=== PATIENT | female | born 1955 | race Caucasian/White ===

== ENCOUNTER 2016-12-20 09:23 | Emergency (ER) | payer OTHER ==
[~2016-12-20] VITALS: Ht 160 cm; Wt 62.4 kg
[~2016-12-20 09:23] MED LIST: ASPIR-LOW81 MG PO; ATORVASTATIN CA40 MG PO; ATORVASTATIN PO; CALCIUM 600 +1 EAC1 PO; CALCIUM PO; CALM; FLUOXETINE HCL10 M1 PO; KEFLEX500 MG PO; LEVOTHROID,SY0.05 MG PO; LEVOTHYROXINE50 MCG PO; LIPITOR40 MG PO; LORAZEPAM0.5 MG PO; METOPROLOL SUCC25 MG PO; METOPROLOL SUCC50 MG PO; MULTIVITAMIN1 EAC2 PO; SIMVASTATIN20 MG PO; TYLENOL REGULA325 MG PO; TYLENOL WITH C1 EACH PO
[2016-12-20] MEDS ORDERED: CLEOCIN300 MG PO (09:44)
[2016-12-20] MEDS ORDERED: LO-DOSE ASPIRIN81 M2 PO (09:45)
[2016-12-20] MEDS ORDERED: SERTRALINE HCL100 MG PO (09:46)
[2016-12-20] MEDS ORDERED: MOBIC7.5 MG PO (11:10)
[2016-12-20] MEDS ORDERED: ZITHROMAX Z-PA250 MG PO (11:10)
[2016-12-20 11:31] VITALS: BP 139/87
== END 2016-12-20 11:32 | disposition home or self-care (01) ==
LOC: EME 09:23
PROC: 2W3CX1Z Immobilization of Right Lower Arm using Splint (ICD-10-PCS; principal; 2016-12-20)
DX: S52.611A Displaced fracture of right ulna styloid process, initial encounter for closed fracture (principal); W01.198A Fall on same level from slipping, tripping and stumbling with subsequent striking against other object, initial encounter; L03.113 Cellulitis of right upper limb; W55.03XA Scratched by cat, initial encounter
CPT/HCPCS: 73110; 99281; 99284